=== PATIENT | female | born 1950 | race Caucasian/White ===

== ENCOUNTER 2017-01-26 21:39 | Inpatient (IN) | payer OTHER ==
[~2017-01-26] VITALS: Ht 160 cm; Wt 72.1 kg
[~2017-01-26 21:39] MED LIST: B COMPLETE1 EACH PO; BIOIDENTICAL HORMONE; CORTEF5 M1 PO; DAILY MULTIPLE1 EACH PO; DAILY VALUE1 EACH PO; FISH OIL 1,0001 EAC7 PO; NATURE-THROID65 MG PO; VITAMIN D5000 UNIT PO
[2017-01-27 06:41] VITALS: BP 127/72
[2017-01-27 10:46] VITALS: BP 122/58
[2017-01-27 13:35] VITALS: BP 102/65
[2017-01-27 14:56] VITALS: BP 121/69
[2017-01-27 18:02] VITALS: BP 122/76
[2017-01-27 20:07] VITALS: BP 129/61
[2017-01-28 00:26] VITALS: BP 127/74
[2017-01-28 04:30] VITALS: BP 114/56
[2017-01-28 07:25] LABS: HEMATOCRIT 30.6 % (36.0-46.0); MCV 92.4 FL (83-99)
[2017-01-28 08:15] VITALS: BP 116/55
[2017-01-28 11:53] VITALS: BP 118/59
[2017-01-28 15:49] VITALS: BP 126/67
[2017-01-28 20:27] VITALS: BP 109/55
[2017-01-29 00:29] VITALS: BP 128/76
[2017-01-29 03:36] VITALS: BP 145/74
[2017-01-29 06:37] LABS: HEMATOCRIT 27.4 % (36.0-46.0); MCV 90.1 FL (83-99)
[2017-01-29 07:33] VITALS: BP 126/65
[2017-01-29] MEDS ORDERED: CELECOXIB200 MG PO (10:20)
[2017-01-29] MEDS ORDERED: OXYCODONE HCL5 MG PO (10:20)
[2017-01-29] MEDS ORDERED: ELIQUIS2.5 MG PO (10:20)
[2017-01-29 12:04] VITALS: BP 133/63
== END 2017-01-29 14:54 | disposition home or self-care (01) | DRG 470 ==
LOC: 2SOUTH → ENRESERV 21:39 → 2SOUTH 01-27 05:34 → 3WEST 01-27 10:21 → 2SOUTH 01-27 10:28 → 3WEST 01-29 14:54
PROVIDERS: Orthopaedic Surgery
PROC: 0SR904A Replacement of Right Hip Joint with Ceramic on Polyethylene Synthetic Substitute, Uncemented, Open Approach (ICD-10-PCS; principal; 2017-01-27)
DX: M16.11 Unilateral primary osteoarthritis, right hip (principal); E27.40 Unspecified adrenocortical insufficiency; E03.9 Hypothyroidism, unspecified; Z82.49 Family history of ischemic heart disease and other diseases of the circulatory system; Z83.3 Family history of diabetes mellitus
CPT/HCPCS: 73501; 85014; 85018; C1713; J0131; J0690; J2250; J2405; J3010; J3370; J7050; J7120